=== PATIENT | male | born 1995 | race Caucasian/White ===

== ENCOUNTER 2020-07-11 01:14 | Emergency (ER) | payer BC ==
[~2020-07-11] VITALS: Ht 175.2 cm; Wt 104.3 kg
[~2020-07-11 01:14] MED LIST: CEPHALEXIN500 M1 PO; LISINOPRIL20 MG PO
[2020-07-11 02:37] LABS: BASO % 0.2 % (0.0-1.0); EOS # 0.2 10*3/uL (0.0-0.4); HEMATOCRIT 41.3 % (42.0-52.0); LYMPH # 2.4 10*3/uL (1.3-4.4); LYMPH % 26.9 % (27.0-41.0); MEAN CELL VOLUME 83.3 fl (80.0-94.0); MEAN CORPUSCULAR HGB CONC 33.7 g/dl (33.0-37.0); MEAN PLATELET VOLUME 9.4 fl (9.6-12.3); MONO # 0.8 10*3/uL (0.1-1.0); MONO % 9.5 % (3.0-9.0); NEUT # 5.4 10*3/uL (2.3-7.9); NEUT % 61.2 % (47.0-73.0); PLATELET COUNT AUTOMATED 272 10*3/uL (130-400); RED BLOOD COUNT 4.96 10*6/uL (4.50-5.90); RED CELL DISTRI WIDTH 13.2 % (0-14.5); WHITE BLOOD COUNT 8.8 10*3/uL (4.8-10.8)
[2020-07-11 02:54] LABS: BUN 12 mg/dl (7-24); CHLORIDE 107 mmol/L (98-107); CREATININE 0.88 mg/dL (0.70-1.30); POTASSIUM 3.3 mmol/L (3.5-5.1); SODIUM 140 mmol/L (136-145)
[2020-07-11] MEDS ORDERED: ZOFRAN4 MG PO (03:14)
== END 2020-07-11 03:19 | disposition home or self-care (01) ==
LOC: ED 01:14
PROVIDERS: Internal Medicine
DX: R11.15 Cyclical vomiting syndrome unrelated to migraine (principal); E87.6 Hypokalemia; Z88.0 Allergy status to penicillin; Z79.899 Other long term (current) drug therapy

== ENCOUNTER 2024-06-11 14:49 | Emergency (ER) | payer SELFPAY ==
[~2024-06-11] VITALS: Ht 175.2 cm; Wt 116.6 kg
[~2024-06-11 14:49] MED LIST changes: +ZOFRAN4 MG PO
[2024-06-11] MEDS ORDERED: cefTRIAXone Sodium 1 GM/10 ML SYR IV ONE (15:45)
[2024-06-11] MEDS ORDERED: PERCOCET 5-3251 EACH PO (16:22)
== END 2024-06-11 16:29 | disposition home or self-care (01) ==
LOC: ED 14:49
DX: K04.7 Periapical abscess without sinus (principal); R22.0 Localized swelling, mass and lump, head; I10 Essential (primary) hypertension; Z88.0 Allergy status to penicillin

== ENCOUNTER 2025-03-03 01:03 | Emergency (ER) | payer BC ==
[~2025-03-03] VITALS: Ht 175.2 cm; Wt 108.9 kg
[~2025-03-03 01:03] MED LIST changes: +PERCOCET 5-3251 EACH PO
[2025-03-03] MEDS ORDERED: MEDROL DOSEPAK4 MG PO (01:15)
[2025-03-03] MEDS ORDERED: BROMPHENIR-PSE118 ML PO (01:15)
[2025-03-03] MEDS ORDERED: SODIUM CHLORIDE 0.9% 1,000 ML IV ONE (01:25)
[2025-03-03] MEDS ORDERED: PREDNISONE20 M1 PO (02:54)
== END 2025-03-03 03:08 | disposition home or self-care (01) ==
LOC: ED 01:03
DX: J20.8 Acute bronchitis due to other specified organisms (principal); R55 Syncope and collapse; I10 Essential (primary) hypertension; Z88.0 Allergy status to penicillin

== ENCOUNTER 2025-03-05 16:28 | Emergency (ER) | payer BC ==
[~2025-03-05] VITALS: Ht 175.3 cm; Wt 108.9 kg
[~2025-03-05 16:28] MED LIST changes: +BROMPHENIR-PSE118 ML PO; +MEDROL DOSEPAK4 MG PO; +PREDNISONE20 M1 PO
[2025-03-05] MEDS ORDERED: Codeine Phosphate/Guaifenesi 10 ML UDC PO ONE (16:55)
[2025-03-05] MEDS ORDERED: Dexamethasone Sodium Phospha 20 MG/5 ML VIAL IV ONE (16:55)
[2025-03-05] MEDS ORDERED: SODIUM CHLORIDE 0.9% 1,000 ML IV ONE (16:55)
[2025-03-05 17:23] LABS: MEAN CELL VOLUME 82.7 fl (80.0-94.0); MEAN CORPUSCULAR HGB 27.6 pg (27.0-31.0); MEAN PLATELET VOLUME 8.8 fl (9.6-12.3); NUCLEATED RED BLOOD CELL 0.0 % (0.0-0.0); NUCLEATED RED BLOOD CELL 0.0 10*3/uL (0.0-0.0); PLATELET COUNT AUTOMATED 354 10*3/uL (130-400); RED CELL DISTRI WIDTH 13.1 % (0-14.5)
[2025-03-05 17:28] LABS: MANUAL DIFF REFLEX YES
[2025-03-05 17:44] LABS: BUN 17 mg/dl (9-23); SGPT/ALT 18 U/L (5-49)
[2025-03-05 17:54] LABS: PLATELET SUFFICIENCY NORMAL (NORMAL)
[2025-03-05] MEDS ORDERED: GUAIFENESIN AC473 M1 PO (18:13)
[2025-03-05] MEDS ORDERED: LEVOFLOXACIN750 M2 PO (18:13)
== END 2025-03-05 18:21 | disposition home or self-care (01) ==
LOC: ED 16:28
PROVIDERS: Emergency Medicine
DX: R55 Syncope and collapse (principal); R05.9 Cough, unspecified; I10 Essential (primary) hypertension; Z88.0 Allergy status to penicillin; Z20.822 Contact with and (suspected) exposure to COVID-19